=== PATIENT | female | born 1950 | race Two or more races ===

== ENCOUNTER 2024-09-17 01:16 | Emergency (ER) | payer OTHER ==
[~2024-09-17] VITALS: Ht 154.9 cm; Wt 57.6 kg
[2024-09-17] MEDS ORDERED: 0.9 % SODIUM CHLORIDE 1,000 ML IV SCH (01:45)
[2024-09-17] MEDS ORDERED: METOCLOPRAMIDE HCL 10 MG in DEXTROSE 5 % IN WATER 50 ML IV ONE (01:45)
[2024-09-17] MEDS ORDERED: MIRTAZAPINE7.5 MG (01:47)
[2024-09-17] MEDS ORDERED: CRESTOR40 MG PO (01:47)
[2024-09-17] MEDS ORDERED: BUSPIRONE HCL7.5 MG (01:47)
[2024-09-17] MEDS ORDERED: VENLAFAXINE112.5 MG PO (01:49)
[2024-09-17 02:36] LABS: HEMATOCRIT 40.5 % (36.0-45.00); HEMOGLOBIN 13.4 g/dL (12.0-15.00); MEAN CELL VOLUME 92.4 fL (80.00-100.00); MEAN CORPUSCULAR HEMOGLOBIN 30.6 pg (27.00-32.0); MEAN CORPUSCULAR HGB CONC 33.1 g/dl (32.0-36.0); PLATELET COUNT 191 K/uL (150-450); RED BLOOD COUNT 4.38 M/uL (4.00-6.00); RED CELL DISTRIBUTION WIDTH 13.8 % (11.5-14.5)
[2024-09-17 03:25] LABS: BILIRUBIN TOTAL 0.53 mg/dL (0.3-1.2); CALCIUM 9.4 mg/dL (8.5-10.1); CREATININE SERUM 1.07 mg/dL (0.55-1.02); GFR 50.41; GLOBULINA 3.6 G/DL (2.4-3.5); POTASSIUM 4.26 mEq/L (3.5-5.1); TOTAL PROTEIN 7.6 gm/dL (6.4-8.2)
[2024-09-17] MEDS ORDERED: PEPCID AC20 MG PO (03:46)
[2024-09-17] MEDS ORDERED: ONDANSETRON ODT8 MG PO (03:46)
== END 2024-09-17 05:01 | disposition home or self-care (01) ==
LOC: ER 01:16
PROVIDERS: General Practice
DX: R11.2 Nausea with vomiting, unspecified (principal); R19.7 Diarrhea, unspecified; R10.9 Unspecified abdominal pain; Z20.822 Contact with and (suspected) exposure to COVID-19; Z88.0 Allergy status to penicillin; Z88.6 Allergy status to analgesic agent
CPT/HCPCS: 36415; 96365; 96366; 99282; J7030